=== PATIENT | male | born 1970 | race Caucasian/White ===

== ENCOUNTER 2018-07-25 11:29 | Emergency (ER) | payer MEDICAID ==
[~2018-07-25] VITALS: Ht 177.8 cm; Wt 97.7 kg
[2018-07-25 11:35] VITALS: Ht 177.8 cm; Wt 97.7 kg
[2018-07-25] MEDS ORDERED: LIPITOR20 MG PO (11:36)
[2018-07-25] MEDS ORDERED: DILANTIN50 MG PO (11:37)
[2018-07-25] MEDS ORDERED: COLACE100 MG PO (11:37)
[2018-07-25] MEDS ORDERED: PREDNISONE10 MG PO (12:23)
[2018-07-25] MEDS ORDERED: VALIUM 2 MG TAB2 MG PO (12:23)
[2018-07-25 13:07] VITALS: BP 163/097
== END 2018-07-25 13:09 | disposition home or self-care (01) ==
LOC: D.ER 11:29
DX: S16.1XXA Strain of muscle, fascia and tendon at neck level, initial encounter (principal); X58.XXXA Exposure to other specified factors, initial encounter; Y93.89 Activity, other specified; Y92.89 Other specified places as the place of occurrence of the external cause; M62.838 Other muscle spasm; I10 Essential (primary) hypertension